=== PATIENT | male | born 1955 | race Hispanic/Latino ===

== ENCOUNTER 2020-09-16 11:17 | Emergency (ER) | payer OTHER ==
[2020-09-16 13:29] LABS: Absolute Lymphocytes (CBC) 2.2 K/uL (0.7-4.9); Basophils % 0.6 % (0-1.3); Hematocrit 52.6 % (39.6-49.0); MPV 9.4 fL (7.6-11.3); RBC Red Blood Cell Count 5.85 M/uL (4.33-5.43)
[2020-09-16] MEDS ORDERED: NA CHLORIDE 0.9% 1,000 ML ONE ×2 (13:44→14:18)
[2020-09-16 13:48] LABS: Albumin 3.5 g/dL (3.4-5.0); Bilirubin Direct 0.3 mg/dL (0-0.2); Bilirubin Total 0.9 mg/dL (0.2-1.0); Potassium 4.2 mmol/L (3.5-5.1); Protein, Total 7.1 g/dL (6.4-8.2)
--- NOTE | 2020-09-16 15:37 | EDPHYS ---
Physician Documentation [facility] Name: Cholo Webster Age: 65 yrs Sex: Male : 1955 Arrival Date: 09/16/2020 Time: 11:22 Bed 17 Private MD: Greg Harrington R ED Physician Minh Sandoval HPI: 09/16 12:51 This 65 yrs old Male presents to ER via Ambulatory with complaints of jmm Dehydrated. 12:51 The patient presents to the emergency department with diarrhea. Onset: The jmm symptoms/episode began/occurred gradually, 5 day(s) ago. Possible causes: unknown. The symptoms are aggravated by nothing. The symptoms are alleviated by. This is a 65 year old male with a history of DM, htn, that presents to the ED with complaints of diarrhea for the past 5 days. Denies infectious exposure, recent antibiotics, vomiting, fever. Historical: - Allergies: 12:10 No Known Allergies; iw - Home Meds: 12:10 Metformin Oral [Active]; Glimepiride Oral [Active]; Lisinopril Oral [Active]; iw - PMHx: 12:10 Diabetes - NIDDM; Hypertension; Kidney stones; iw - PSHx: 12:10 Cholecystectomy; Lithotripsy; iw - Immunization history:: Adult Immunizations unknown. - Social history:: Smoking status: unknown. ROS: 12:51 Constitutional: Negative for fever, chills, and weight loss, Cardiovascular: Negative jmm for chest pain, palpitations, and edema, Respiratory: Negative for shortness of breath, cough, wheezing, and pleuritic chest pain. 12:51 Abdomen/GI: Positive for diarrhea. 12:51 All other systems are negative. Exam: 12:51 Constitutional: This is a well developed, well nourished patient who is awake, alert, jmm and in no acute distress. Head/Face: atraumatic. Eyes: EOMI, no conjunctival erythema appreciated ENT: Moist Mucus Membranes Neck: Trachea midline, Supple Chest/axilla: Normal chest wall appearance and motion. Cardiovascular: Regular rate and rhythm. No edema appreciated Respiratory: Normal respirations, no respiratory distress appreciated 12:51 Skin: General appearance color normal MS/ Extremity: Moves all extremities, no obvious deformities appreciated, no edema noted to the lower extremities Neuro: Awake and alert, normal gait Psych: Behavior is normal, Mood is normal, Patient is cooperative and pleasant 12:51 Abdomen/GI: Inspection: abdomen appears normal, Bowel sounds: normal, Palpation: soft, nontender, in all quadrants. Vital Signs: 12:08 BP 114 / 78; Pulse 107; Resp 16; Pulse Ox 97% on R/A; Weight 96.62 kg; Height 5 ft. 10 iw in. (177.80 cm); 14:11 BP 101 / 58; Pulse 88; Resp 17 S; Pulse Ox 97% on R/A; jd3 15:12 BP 113 / 73; Pulse 84; Resp 16 S; Pulse Ox 97% on R/A; jd3 15:52 BP 119 / 75; Pulse 81; Resp 16 S; Pulse Ox 98% on R/A; ca1 12:08 Body Mass Index 30.56 (96.62 kg, 177.80 cm) iw MDM: 12:51 Patient medically screened. [facility] 15:34 Data reviewed: vital signs, nurses notes. Counseling: I had a detailed discussion with [facility] the patient and/or guardian regarding: the historical points, exam findings, and any diagnostic results supporting the discharge/admit diagnosis, lab results, the need for outpatient follow up, to return to the emergency department if symptoms worsen or persist or if there are any questions or concerns that arise at home. Refusal of service: The patient/guardian displays adequate decision making capability and despite a detailed discussion of alternatives, benefits, risks, and consequences refuses: CT Scan. 09/16 13:05 Order name: Basic Metabolic Panel; Complete Time: 13:49 [facility] 09/16 13:05 Order name: CBC with Diff; Complete Time: 13:49 [facility] 09/16 13:05 Order name: Hepatic Function; Complete Time: 13:49 [facility] 09/16 13:05 Order name: Lipase; Complete Time: 13:49 [facility] 09/16 13:05 Order name: IV Saline Lock; Complete Time: 13:20 [facility] 09/16 13:05 Order name: Labs collected and sent; Complete Time: 13:20 [facility] Administered Medications: 13:30 Drug: NS 0.9% 1000 ml Route: IV; Rate: 1 bolus; Site: right antecubital; jd3 14:00 Drug: NS 0.9% 1000 ml Route: IV; Rate: 1 bolus; Site: right antecubital; jd3 Disposition Summary: 09/16/20 15:36 Discharge Ordered Location: Home [facility] Condition: Stable [facility] Diagnosis - Diarrhea, unspecified jmm Followup: [facility] - With: Greg Harrington MD - When: 1 - 2 days - Reason: Recheck today's complaints, Continuance of care, Re-evaluation by your physician Discharge Instructions: - Discharge Summary Sheet [facility] - Food Choices to Help Relieve Diarrhea, Adult [facility] Forms: - Medication Reconciliation Form [facility] - Thank You Letter [facility] - Antibiotic Education [facility] - Prescription Opioid Use [facility] Prescriptions: - Flagyl 500 mg Oral Tablet - take 1 tablet by ORAL route every 6 hours for 10 days; 40 tablet; Refills: 0, [facility] Product Selection Permitted - Cipro 500 mg Oral Tablet - take 1 tablet by ORAL route every 12 hours for 7 days; 14 tablet; Refills: 0, [facility] Product Selection Permitted Addendum: 09/19/2020 13:28 Co-signature as Attending Physician, Minh Sandoval MD I agree with the assessment and k dr plan of care. Signatures: Dispatcher [employer] [facility] Minh Sandoval MD MD kdr Mickail, Joel, PA PA [facility] Yoli Boothe, RN Steven Cherry RN RN jd3
--- NOTE | 2020-09-16 15:37 | ER ---
Nurse's Notes [facility] Name: Cholo Webster Age: 65 yrs Sex: Male : 1955 Arrival Date: 09/16/2020 Time: 11:22 Bed 17 Private MD: Greg Harrington R Diagnosis: Diarrhea, unspecified Presentation: 09/16 12:08 Chief complaint: Patient states: Dr. Harrington sent to ER for IV fluids and possible abx, iw has had diarrhea X 5 days , denies abd pain. Coronavirus screen: Client presents with at least one sign or symptom that may indicate coronavirus-19. Ebola Screen: Patient negative for fever greater than or equal to 101.5 degrees Fahrenheit, and additional compatible Ebola Virus Disease symptoms Patient denies exposure to infectious person. Patient denies travel to an Ebola-affected area in the 21 days before illness onset. No symptoms or risks identified at this time. Initial Sepsis Screen: Does the patient meet any 2 criteria? No. Patient's initial sepsis screen is negative. Does the patient have a suspected source of infection? No. Patient's initial sepsis screen is negative. Risk Assessment: Do you want to hurt yourself or someone else? Patient reports no desire to harm self or others. Onset of symptoms was September 12, 2020. 12:08 Method Of Arrival: Ambulatory iw 12:08 Acuity: FELICIA 3 iw Historical: - Allergies: 12:10 No Known Allergies; iw - Home Meds: 12:10 Metformin Oral [Active]; Glimepiride Oral [Active]; Lisinopril Oral [Active]; iw - PMHx: 12:10 Diabetes - NIDDM; Hypertension; Kidney stones; iw - PSHx: 12:10 Cholecystectomy; Lithotripsy; iw - Immunization history:: Adult Immunizations unknown. - Social history:: Smoking status: unknown. Screenin:11 Abuse screen: Denies threats or abuse. Nutritional screening: No deficits noted. jd3 Tuberculosis screening: No symptoms or risk factors identified. Fall Risk Ambulatory Aid- None/Bed Rest/Nurse Assist (0 pts). Gait- Normal/Bed Rest/Wheelchair (0 pts) Mental Status- Oriented to own ability (0 pts). Total Etienne Fall Scale indicates No Risk (0-24 pts). Assessment: 12:15 General: Appears in no apparent distress. comfortable, Behavior is calm, cooperative, jd3 appropriate for age. Pain: Denies pain. Neuro: Level of Consciousness is awake, alert, obeys commands, Oriented to person, place, time, situation. Cardiovascular: Denies chest pain, Capillary refill < 3 seconds Patient's skin is warm and dry. Respiratory: Airway is patent Respiratory effort is even, unlabored, Respiratory pattern is regular, symmetrical, Denies cough, shortness of breath. GI: Reports diarrhea. : No signs and/or symptoms were reported regarding the genitourinary system. EENT: No signs and/or symptoms were reported regarding the EENT system. Derm: Skin is intact, Skin is dry, Skin is normal, Skin temperature is warm. Musculoskeletal: Circulation, motion, and sensation intact. Range of motion: intact in all extremities. 13:11 Reassessment: Patient appears in no apparent distress at this time. No changes from jd3 previously documented assessment. Patient and/or family updated on plan of care and expected duration. Pain level reassessed. Patient is alert, oriented x 3, equal unlabored respirations, skin warm/dry/pink. 15:12 Reassessment: Patient appears in no apparent distress at this time. Patient and/or jd3 family updated on plan of care and expected duration. Pain level reassessed. Patient is alert, oriented x 3, equal unlabored respirations, skin warm/dry/pink. awaiting disposition. 15:52 Reassessment: Patient appears in no apparent distress at this time. Patient is alert, ca1 oriented x 3, equal unlabored respirations, skin warm/dry/pink. Vital Signs: 12:08 BP 114 / 78; Pulse 107; Resp 16; Pulse Ox 97% on R/A; Weight 96.62 kg; Height 5 ft. 10 iw in. (177.80 cm); 14:11 BP 101 / 58; Pulse 88; Resp 17 S; Pulse Ox 97% on R/A; jd3 15:12 BP 113 / 73; Pulse 84; Resp 16 S; Pulse Ox 97% on R/A; jd3 15:52 BP 119 / 75; Pulse 81; Resp 16 S; Pulse Ox 98% on R/A; ca1 12:08 Body Mass Index 30.56 (96.62 kg, 177.80 cm) ED Course: 11:22 Patient arrived in ED. mr 11:23 Greg Harrington MD is Private Physician. mr 12:04 [facility] 12:04 Minh Sandoval MD is Attending Physician. [facility] 12:10 Triage completed. iw 12:10 Arm band placed on. iw 12:11 Steven Shultz RN is Primary Nurse. jd3 13:11 Patient has correct armband on for positive identification. Bed in low position. Call j light in reach. Side rails up X 1. Adult w/ patient. Pulse ox on. NIBP on. 15:35 Greg Harrington MD is Referral Physician. [facility] 15:52 No provider procedures requiring assistance completed. IV discontinued, intact, ca1 bleeding controlled, No redness/swelling at site. Pressure dressing applied. Administered Medications: 13:30 Drug: NS 0.9% 1000 ml Route: IV; Rate: 1 bolus; Site: right antecubital; jd3 14:00 Drug: NS 0.9% 1000 ml Route: IV; Rate: 1 bolus; Site: right antecubital; jd3 Outcome: 15:36 Discharge ordered by MD. [facility] 15:52 Discharged to home ambulatory, with significant other. ca1 15:52 Condition: stable 15:52 Discharge instructions given to patient, significant other, Instructed on discharge instructions, follow up and referral plans. medication usage, Demonstrated understanding of instructions, follow-up care, medications, Prescriptions given X 2. 15:53 Patient left the ED. ca1 Signatures: Placido Mcmahon PA PA [facility] Jessie Yoli Boothe RN RN Steven Shultz RN RN jOpal Bragg RN RN ca1
[2020-09-16 16:04] VITALS: BP 119/75; O2SAT 98
== END 2020-09-16 15:53 | disposition home or self-care (01) ==
LOC: ER 11:17
DX: R19.7 Diarrhea, unspecified (principal); I10 Essential (primary) hypertension; E11.9 Type 2 diabetes mellitus without complications
CPT/HCPCS: 85025; 80048; 36415; 80076; 83690; 99283; J7030 ×2

== ENCOUNTER 2022-10-24 11:42 | Day surgery (SDC) | payer OTHER ==
[2022-10-24] MEDS ORDERED: NA CHLORIDE 0.9% 1,000 ML ONE (12:06)
[2022-10-24] MEDS ORDERED: CEFAZOLIN SODIUM 2 GM/VIAL ONE (12:06)
[2022-10-24] MEDS ORDERED: dexAMETHasone 10 MG/ML VIAL ONE (12:35)
[2022-10-24] MEDS ORDERED: FENTANYL CITR 100 MCG/2 ML ONE (12:35)
[2022-10-24] MEDS ORDERED: propofoL 200 MG/20 ML VIAL IV ONE (12:35)
[2022-10-24] MEDS ORDERED: MIDAZOLAM HCL 2 MG/2 ML INJ ONE (12:35)
[2022-10-24] MEDS ORDERED: ONDANSETRON 4 MG/2 ML VIAL ONE (12:35)
[2022-10-24] MEDS ORDERED: LIDOCAINE 2% MPF 5 ML VIAL ONE (12:35)
[2022-10-24] MEDS ORDERED: KETOROLAC 30 MG/ML INJ ONE (12:36)
[2022-10-24] MEDS ORDERED: BUPIVACAINE 0.5% PF 10 ML VIAL ONE (12:52)
[2022-10-24] MEDS ORDERED: BUPIVACAINE 0.25% PF 10 ML VIAL ONE (12:52)
[2022-10-24] MEDS ORDERED: Phenylephrine HCl 10 MG/ML 1 ML VIAL ONE (13:31)
--- NOTE | 2022-10-24 14:05 | P.BOP ---
Preoperative diagnosis: right knee medial meniscus tear Postoperative diagnosis: same Primary procedure: right knee arthroscopic partial medial meniscectomy Document Preparation Specialist: NONE,NONE Estimated blood loss: 5 cc Specimen: none Findings: see dictation Anesthesia: General Complications: None Implants: none Fluids & blood products: per anesthesia record Transferred to: Recovery Room Condition: Good
[2022-10-24 15:16] VITALS: BP 125/65; TEMP 97.2
[2022-10-24 15:21] VITALS: O2SAT 93
--- NOTE | 2022-10-25 05:48 | OP ---
Date of Procedure: 10/24/2022 Surgeon: Jose Ahn MD Preoperative Diagnoses: 1.Right knee medial meniscus tear. 2.Right knee osteoarthritis. Postoperative Diagnoses: 1.Right knee medial meniscus tear. 2.Right knee osteoarthritis. Procedure Performed: Right knee arthroscopic partial medial meniscectomy. Anesthesia: General LMA. Fluids: Per Anesthesia record. Ebl: 5 cc. Complications: None. Implants: None. Indication For Procedure: Cholo is a 67-year-old male, who presented to my clinic with signs, symptom s, and MRI findings consistent with a right knee medial meniscus tear. Patient had significant pain and failed conservative treatment measures including home exercise program. I discussed with the pat ient at length risks and benefits associated with operative and nonoperative treatment, including con tinued pain with underlying osteoarthritis. He expressed understanding and elected to proceed with o perative treatment. Description Of Procedure: After informed consent was obtained, patient was identified in the preope rative holding area. The right lower extremity was marked. Patient was brought back to the operatin g room, transferred to the operating table in the supine fashion, placed under general LMA anesthesia . The right lower extremity was then prepped and draped in usual sterile fashion. A time-out was in itiated. Correct patient and procedure confirmed and identified. The patient did receive his preope rative prophylactic antibiotics. Standard anteromedial and anterolateral portals were created. Arth roscope was brought in via the anterolateral portal. Diagnostic arthroscopy was performed. The arth roscope was then brought into the patellofemoral joint. The patient was noted to have some grade 3 c hondromalacia changes of the undersurface of the patella as well as trochlear groove. The arthroscop e was then brought in the medial and lateral gutters. There were no loose bodies within the gutters. The arthroscope was then brought in the medial compartment. The patient was noted to have a comple x tear of the medial meniscus body posterior horn as well as grade 3 chondromalacia changes of the me dial femoral condyle. A partial medial meniscectomy was performed using a meniscal biter and arthros copic shaver to smooth meniscal borders. The medial meniscus was found to be stable to probe. The a rthroscope was then brought into the intercondylar notch. The patient did have an intact ACL and PCL , which were stable to probe. The arthroscope was then brought in the lateral compartment. The mela ent did not have pristine cartilage of the lateral femoral condyle and the lateral meniscus, which wa s intact without tear. There were some calcifications of the lateral meniscus consistent with histor y of gouty arthropathy. The arthroscopic instruments were then removed without complication, wounds were then irrigated thoroughly with normal saline. Subcutaneous tissue was approximated using a 4-0 Monocryl. Sterile dressings were applied. The patient was awakened and transferred to PACU in stabl e condition. Postoperative Plan: The patient will be weightbearing as tolerated. Physical Therapy consulted to a id with mobilization. He will follow up in clinic next week for wound check. ANEL/MODL Voice ID: [id number] Report ID: [id number]
== END 2022-10-24 15:18 | disposition home or self-care (01) ==
LOC: OR 11:42
PROVIDERS: ATTEND Orthopaedic Surgery Sports Medicine
PROC: 0SBC4ZZ Excision of Right Knee Joint, Percutaneous Endoscopic Approach (ICD-10-PCS; principal; 2022-10-24 13:30)
DX: S83.241A Other tear of medial meniscus, current injury, right knee, initial encounter (principal); M17.11 Unilateral primary osteoarthritis, right knee; E11.9 Type 2 diabetes mellitus without complications; I10 Essential (primary) hypertension; E78.00 Pure hypercholesterolemia, unspecified
CPT/HCPCS: 82947 ×2; 29881; J2704; J2371; J2001; J2250; J3010; J1100; J2405; J7030

== ENCOUNTER 2022-12-28 08:42 | Day surgery (SDC) | payer OTHER ==
[2022-12-27 10:22] LABS: Absolute Lymphocytes (CBC) 2.5 K/uL (0.7-4.9); Hematocrit 52.2 % (39.6-49.0); Lymphocytes % 34.3 % (15.3-44.8); MCV 88.5 fL (80-100); MPV 8.2 fL (7.6-11.3); Platelets 226 thou/uL (152-406); RBC Red Blood Cell Count 5.91 M/uL (4.33-5.43)
[2022-12-27 10:28] LABS: Protime INR 0.97
[2022-12-27 11:31] LABS: Potassium 4.5 mEq/L (3.5-5.1)
[2022-12-28] MEDS ORDERED: CEFAZOLIN SODIUM 2 GM/VIAL ONE (09:18)
[2022-12-28] MEDS ORDERED: NA CHLORIDE 0.9% 1,000 ML ONE (09:18)
[2022-12-28] MEDS ORDERED: LIDOCAINE 2% MPF 5 ML VIAL ONE (09:44)
[2022-12-28] MEDS ORDERED: FENTANYL CITR 100 MCG/2 ML ONE ×2 (09:44→10:39)
[2022-12-28] MEDS ORDERED: propofoL 200 MG/20 ML VIAL IV ONE (09:44)
[2022-12-28] MEDS ORDERED: dexAMETHasone 10 MG/ML VIAL ONE (10:18)
[2022-12-28] MEDS ORDERED: ONDANSETRON 4 MG/2 ML VIAL ONE (10:18)
[2022-12-28] MEDS ORDERED: GLYCOPYRROLATE 0.2 MG/ML SYR ONE (10:23)
[2022-12-28] MEDS ORDERED: BUPIVACAINE 0.25% PF 10 ML VIAL IJ ONE ×2 (10:33)
[2022-12-28] MEDS ORDERED: EPHEDRINE SULF 50 MG/ML VIAL ONE (10:33)
--- NOTE | 2022-12-28 11:24 | P.BOP ---
Preoperative diagnosis: left knee medial meniscus tear, left knee osteoarthritis Postoperative diagnosis: same, left knee lateral meniscus tear Primary procedure: left knee arthroscopic partial medial meniscectomy Secondary procedure: left knee arthroscopic partial lateral meniscectomy Sanitation Officer: NONE,NONE Estimated blood loss: 10 cc Specimen: none Findings: see dictation Anesthesia: General Complications: None Implants: none Fluids & blood products: see dictation Transferred to: Recovery Room Condition: Good
[2022-12-28 12:02] VITALS: BP 147/67; TEMP 97.1; O2SAT 93
--- NOTE | 2022-12-28 21:17 | OP ---
Date of Procedure: 12/28/2022 Surgeon: Jose Ahn MD Preoperative Diagnoses: 1.Left knee medial meniscus tear. 2.Left knee osteoarthritis. Postoperative Diagnoses: 1.Left knee medial meniscus tear. 2.Left knee osteoarthritis. 3.Left knee lateral meniscus tear. Procedure Performed: Left knee arthroscopic partial lateral meniscectomy. Anesthesia: General, LMA. Fluids: Per Anesthesia record. Estimated Blood Loss: 10 cc. Complications: None. Implants: None. Indication For Procedure: Ziyad is a 67-year-old male, presented to my clinic with signs, symptoms, and MRI findings consistent with a left knee medial meniscus tear as well as an underlying osteoarth ritis. I discussed with the patient at length risks and benefits associated with operative and nonop erative treatment. He expressed understanding and elected to proceed with operative treatment. Description Of Procedure: After informed consent was obtained, the patient was identified in the pre operative holding area. The left lower extremity was marked. Patient was then brought back to the o perating room, transferred to the operating table in supine fashion, placed under general LMA anesthe pratibha. The left lower extremity was then prepped and draped in usual sterile fashion. A time-out was initiated. The correct patient and procedure were confirmed and identified. The patient did receive his preoperative prophylactic antibiotics. The left lower extremity was exsanguinated and the tourn iquet was inflated to 250 mmHg. Standard anteromedial, anterolateral portals were created. The arth roscope was brought into the anterolateral portal and diagnostic arthroscopy was performed. The mela ent did have some grade 3 chondromalacia changes of the trochlear groove as well as undersurface of p atella. There were no loose chondral flaps noted. The arthroscope was then brought into the medial compartment. Patient had some grade 3 chondromalacia changes of the medial femoral condyle and grade 2 chondromalacia changes of the medial tibial plateau. The patient had a complex tear in posterior horn of medial meniscus. A partial medial meniscectomy was performed using meniscal biters and arthr oscopic shaver to smooth meniscal borders. The arthroscope was then brought on medial compartment in to the intercondylar notch where the patient was noted have an intact ACL and PCL, which was stable t o probe. The arthroscope was then brought into the lateral compartment where the patient was noted t o have a small radial tear of the lateral meniscus. A partial lateral meniscectomy was performed usi ng meniscal biters and arthroscopic shaver to smooth meniscal borders which were stable to probe. Th e arthroscopic instruments were then removed without complication. Wounds were then irrigated thorou ghly with normal saline. Portals were approximated using a 4-0 Monocryl. Sterile dressings were álvaro lied. Tourniquet was let down. Patient was awakened and transferred to PACU in stable condition. Postoperative Plan: The patient will be weight bear as tolerated. Physical therapy will be consulte d to aid with mobilization and for post-meniscectomy protocol. CV/MODL Voice ID: [id number] Report ID: [id number]
== END 2022-12-28 12:30 | disposition home or self-care (01) ==
LOC: OR 08:42
PROVIDERS: ATTEND Orthopaedic Surgery Sports Medicine
PROC: 0SBD4ZZ Excision of Left Knee Joint, Percutaneous Endoscopic Approach (ICD-10-PCS; principal; 2022-12-28 10:15)
DX: S83.242A Other tear of medial meniscus, current injury, left knee, initial encounter (principal); M17.12 Unilateral primary osteoarthritis, left knee; E11.9 Type 2 diabetes mellitus without complications; I10 Essential (primary) hypertension
CPT/HCPCS: 85025; 80048; 36415; 85610; 82947 ×2; 85730; 29881; J2704; J2001; J3010 ×2; J1100; J2405; J7030